=== PATIENT | male | born 1930 | race Caucasian/White ===

== ENCOUNTER → 2016-09-02 | Outpatient (CLI) | payer MEDICARE ==
[2016-09-02 14:59] LABS: BASO # 0.1 x10^3/uL (0.0-0.2); BASO % 1 % (0-3); EOS # 0.4 x10^3/uL (0.0-0.7); EOS % 4 % (0-3); HEMATOCRIT 25.6 % (39.0-53.0); HEMOGLOBIN 8.3 g/dL (13.0-17.5); LYMPH # 3.1 x10^3/uL (1.0-4.8); LYMPH % 29 % (24-48); MEAN CORPUSCULAR HEMOGLOBIN 29 pg (25-35); MEAN CORPUSCULAR HGB CONC 33 g/dL (31-37); MEAN CORPUSCULAR VOLUME 89 fL (79-100); MONO # 0.7 x10^3/uL (0.0-1.1); MONO % 7 % (0-9); NEUT # 6.2 x10^3uL (1.8-7.7); NEUT % 60 % (31-73); PLATELET COUNT 218 x10^3/uL (140-400); RED BLOOD COUNT 2.87 x10^6/uL (4.30-5.70); RED CELL DISTRIBUTION WIDTH 17.4 % (11.5-14.5); WHITE BLOOD COUNT 10.4 x10^3/uL (4.0-11.0)
[2016-09-02 15:09] LABS: ALBUMIN 3.5 g/dL (3.4-5.0); CALCIUM 8.9 mg/dL (8.5-10.1); CREATININE 2.1 mg/dL (0.7-1.3); PHOSPHORUS 4.1 mg/dL (2.6-4.7); POTASSIUM 3.9 mmol/L (3.5-5.1); URIC ACID 7.5 mg/dL (3.5-7.2)
[2016-09-03 15:08] LABS: CALCIUM PTH 9.1 mg/dL (8.6-10.2); PTH INTACT 59 pg/mL (15-65)
== END | disposition home or self-care (01) ==
LOC: LAB 13:58
PROVIDERS: ATTEND Internal Medicine Nephrology
DX: I12.9 Hypertensive chronic kidney disease with stage 1 through stage 4 chronic kidney disease, or unspecified chronic kidney disease (principal); N18.9 Chronic kidney disease, unspecified; R80.9 Proteinuria, unspecified
CPT/HCPCS: 36415; 80069; 82728; 83540; 83550; 83970; 84550; 85027

== ENCOUNTER → 2016-09-02 | Outpatient (CLI) | payer MEDICARE ==
[2016-09-02 15:04] LABS: CALCIUM 8.7 mg/dL (8.5-10.1); CREATININE 2.1 mg/dL (0.7-1.3); POTASSIUM 3.7 mmol/L (3.5-5.1)
== END ==
LOC: LAB 13:48
PROVIDERS: ATTEND Nurse Practitioner Occupational Health
DX: N40.0 Benign prostatic hyperplasia without lower urinary tract symptoms (principal)
CPT/HCPCS: 36415; 80048

== ENCOUNTER → 2016-12-30 | Outpatient (CLI) | payer MEDICARE ==
[2016-12-30 15:22] LABS: BASO # 0.1 x10^3/uL (0.0-0.2); BASO % 1 % (0-3); EOS # 0.4 x10^3/uL (0.0-0.7); EOS % 4 % (0-3); HEMATOCRIT 25.3 % (39.0-53.0); HEMOGLOBIN 8.3 g/dL (13.0-17.5); LYMPH # 3.9 x10^3/uL (1.0-4.8); LYMPH % 37 % (24-48); MEAN CORPUSCULAR HEMOGLOBIN 30 pg (25-35); MEAN CORPUSCULAR HGB CONC 33 g/dL (31-37); MEAN CORPUSCULAR VOLUME 91 fL (79-100); MONO # 0.7 x10^3/uL (0.0-1.1); MONO % 6 % (0-9); NEUT # 5.7 x10^3uL (1.8-7.7); NEUT % 53 % (31-73); PLATELET COUNT 213 x10^3/uL (140-400); RED BLOOD COUNT 2.78 x10^6/uL (4.30-5.70); RED CELL DISTRIBUTION WIDTH 16.3 % (11.5-14.5); WHITE BLOOD COUNT 10.7 x10^3/uL (4.0-11.0)
[2016-12-30 15:47] LABS: ALBUMIN 3.7 g/dL (3.4-5.0); CALCIUM 9.3 mg/dL (8.5-10.1); CREATININE 2.5 mg/dL (0.7-1.3); GFR 24.6; PHOSPHORUS 4.2 mg/dL (2.6-4.7); POTASSIUM 3.9 mmol/L (3.5-5.1)
== END | disposition home or self-care (01) ==
LOC: LAB 14:24
PROVIDERS: ATTEND Internal Medicine Nephrology
DX: I12.9 Hypertensive chronic kidney disease with stage 1 through stage 4 chronic kidney disease, or unspecified chronic kidney disease (principal); N18.9 Chronic kidney disease, unspecified; E11.21 Type 2 diabetes mellitus with diabetic nephropathy; D63.1 Anemia in chronic kidney disease; R80.9 Proteinuria, unspecified; Z68.30 Body mass index [BMI] 30.0-30.9, adult
CPT/HCPCS: 80069; 82728; 83540; 83550; 85025

== ENCOUNTER 2017-01-19 09:23 | Emergency (ER) | payer MEDICARE ==
[~2017-01-19] VITALS: Ht 177.8 cm; Wt 93.0 kg
[2017-01-19] MEDS ORDERED: HYDROcodone/APAP 5/325MG 1 TAB TABLET PO ONE (10:00)
[2017-01-19 10:25] VITALS: BP 136/46
--- NOTE | 2017-01-19 10:28 | RAD ---
Indication wrist pain. Injury yesterday. A lateral and oblique view of the left forearm were obtained as well as an AP view. No acute bony finding is seen. Vascular calcification is noted.
--- NOTE | 2017-01-19 10:35 | RAD ---
Indication injury yesterday. Pain. AP oblique and lateral views of the left wrist were obtained. There is probable bony demineralization. There are some degenerative changes at the first CMC joint. There is vascular calcification. Acute bony finding is not seen. IMPRESSION: No acute bony finding
[2017-01-19] MEDS ORDERED: HYDR-971 PO (10:47)
--- NOTE | 2017-01-19 10:47 | PHYS DOC ---
Past History Past Medical History: CAD, Diabetes, Hypertension, [place] Past Surgical History: Coronary Bypass Surgery, Pacemaker Alcohol Use: None Drug Use: None Adult General Chief Complaint Chief Complaint: WRIST PAIN HPI HPI Patient is a 86 year old M who presents with constant dull left wrist pain worse with movement and improved with rest. Shawn states that he had a fall last night. He fell backwards onto his bottom with his left hand outstretched behind him. He had immediate and constant pain. He states that he has had difficulty using his walker but has been able to get around last night and this morning. He did have recent medication changes with respect to diabetes medication and his blood pressure medications. Review of Systems Review of Systems Constitutional: Denies fever or chills [] Eyes: Denies change in visual acuity, redness, or eye pain [] HENT: Denies nasal congestion or sore throat [] Respiratory: Denies cough or shortness of breath [] Cardiovascular: No additional information not addressed in HPI [] GI: Denies abdominal pain, nausea, vomiting, bloody stools or diarrhea [] : Denies dysuria or hematuria [] Musculoskeletal: Negative except history of present illness Integument: Denies rash or skin lesions [] Neurologic: Denies headache, focal weakness or sensory changes [] Endocrine: Denies polyuria or polydipsia [] Family History Family History Noncontributory Current Medications Current Medications Medications reviewed Current Medications Medications (Trade) Dose Ordered Sig/Joann Start Time Stop Time Status Last Admin Dose Admin Acetaminophen/ Hydrocodone Bitart (Lortab 5/325) 1 tab 1X ONCE 01/19/17 10:00 01/19/17 10:01 DC 01/19/17 10:14 1 TAB Allergies Allergies Allergies Coded Allergies Type Severity Reaction Last Updated Verified Penicillins Allergy Intermediate rash 01/19/17 Yes egg Allergy Unknown 01/19/17 Yes Physical Exam Physical Exam Constitutional: Well developed, well nourished, no acute distress, non-toxic appearance. [] HENT: Normocephalic, atraumatic, Eyes: EOMI, conjunctiva normal, no discharge. [] Neck: Normal range of motion, no tenderness, supple, no stridor. [] Cardiovascular:Heart rate regular rhythm, Lungs & Thorax: Bilateral breath sounds clear to auscultation [] Abdomen: Bowel sounds normal, soft, no tenderness, no masses, no pulsatile masses. [] Extremities: Exam limited to the left arm: Moderate generalized swelling around the wrist with mild ecchymosis. Generalized tenderness to palpation. Normal active and passive range of motion however pain was noted. Strength testing is limited due to pain. Neurovascularly intact. Neurologic: Alert and oriented X 3, Psychologic: Affect normal, judgement normal, mood normal. [] Current Patient Data Vital Signs Vital Signs Date Time Temp Pulse Resp B/P (MAP) Pulse Ox O2 Delivery O2 Flow Rate FiO2 01/19/17 10:25 74 20 136/46 (76) 97 Room Air 01/19/17 09:23 98.2 EKG EKG [] Radiology/Procedures Radiology/Procedures X-ray wrist 3 view and forearm 3 view Impressions: No acute bony disease - Scaletty Course & Med Decision Making Course & Med Decision Making Pertinent Labs and Imaging studies reviewed. (See chart for details) Based on Liane use of a walker for mobility there was concern about his ability to take care of himself at home. He does live with his son. Both Shawn and his son state that he has been able to get around the house since the fall. Both feel that he will continue to be able to get around the house after discharge from the ER. He was strongly advised follow-up with his primary care doctor as soon as possible to assess his mobility and fall risk. This follow-up may also assist in a dressing medication changes made by specialists. Dragon Disclaimer Dragon Disclaimer This chart was dictated in whole or in part using Voice Recognition software in a busy, high-work load, and often noisy Emergency Department environment. It may contain unintended and wholly unrecognized errors or omissions. Departure Departure: Impression: Primary Impression: Contusion of wrist, left Disposition: 01 HOME, SELF-CARE Condition: STABLE Referrals: KALE GUADALUPE (PCP) Patient Instructions: Wrist Splint Additional Instructions: Shawn was seen in the emergency department for wrist injury. No emergency medical condition was found on history or physical exam. He did have normal x- rays of his wrist and forearm. He was placed in a splint, for a possible wrist sprain. He is given a prescription for pain medication and advised to use lidocaine patches. He was advised that this injury as well as pain medication increase his risk for fall. He was also advised that oral pain medication will increase his risk for constipation. He was advised to use stool softeners while using pain medication. He was advised follow-up with his primary care doctor as soon as possible for further management of his mobility and full risk. He was discharged in the care of his son. Scripts Hydrocodone Bit/Acetaminophen (NORCO 5-325 TABLET) 1 Each Tablet 1 TAB PO TID for 3 Days, #9 TAB Prov: SPENCER VAZQUEZ MD 01/19/17 Problem Qualifiers Primary Impression: Contusion of wrist, left Encounter type: initial encounter Qualified Codes: S60.212A - Contusion of left wrist, initial encounter SPENCER VAZQUEZ MD Jan 19, 2017 10:47
[2017-01-19] MEDS ORDERED: LINA5TAB4 PO (16:14)
[2017-01-19] MEDS ORDERED: PIOG30TA41 PO (16:15)
[2017-01-19] MEDS ORDERED: ATOR40TA59 PO (16:16)
[2017-01-19] MEDS ORDERED: AMLO10TA2 PO (16:16)
[2017-01-19] MEDS ORDERED: ASPI-630 PO (16:16)
[2017-01-19] MEDS ORDERED: FISH12002 PO (16:16)
[2017-01-19] MEDS ORDERED: TAMS0.4C97 PO (16:16)
[2017-01-19] MEDS ORDERED: FERR-26 PO (16:17)
[2017-01-19] MEDS ORDERED: FURO80TA3 PO (16:17)
[2017-01-19] MEDS ORDERED: METO50TA2 PO (16:18)
[2017-01-19] MEDS ORDERED: MULT1TAB52 PO (16:18)
[2017-01-19] MEDS ORDERED: PREG75CA PO (16:18)
== END 2017-01-19 10:55 | disposition home or self-care (01) ==
LOC: ER 09:23
DX: S60.212A Contusion of left wrist, initial encounter (principal); I25.810 Atherosclerosis of coronary artery bypass graft(s) without angina pectoris; E11.9 Type 2 diabetes mellitus without complications; I10 Essential (primary) hypertension; I25.2 Old myocardial infarction; Z95.0 Presence of cardiac pacemaker; Z91.012 Allergy to eggs; Z88.0 Allergy status to penicillin; W19.XXXA Unspecified fall, initial encounter; Y93.89 Activity, other specified; Y99.8 Other external cause status; Y92.89 Other specified places as the place of occurrence of the external cause
CPT/HCPCS: 29125; 73090; 73110; 99284

== ENCOUNTER 2017-01-19 14:26 | Inpatient (IN) | payer MEDICARE ==
[~2017-01-19] VITALS: Ht 177.8 cm; Wt 97.2 kg
[~2017-01-19 14:26] MED LIST: HYDR-971 PO
[2017-01-19 16:13] VITALS: BP 147/62
[2017-01-19] MEDS ORDERED: LINA5TAB4 PO (16:14)
[2017-01-19] MEDS ORDERED: PIOG30TA41 PO (16:15)
[2017-01-19] MEDS ORDERED: FISH12002 PO (16:16)
[2017-01-19] MEDS ORDERED: ATOR40TA59 PO (16:16)
[2017-01-19] MEDS ORDERED: ASPI-630 PO (16:16)
[2017-01-19] MEDS ORDERED: TAMS0.4C97 PO (16:16)
[2017-01-19] MEDS ORDERED: AMLO10TA2 PO (16:16)
[2017-01-19] MEDS ORDERED: FERR-26 PO (16:17)
[2017-01-19] MEDS ORDERED: FURO80TA3 PO (16:17)
[2017-01-19] MEDS ORDERED: MULT1TAB52 PO (16:18)
[2017-01-19] MEDS ORDERED: METO50TA2 PO (16:18)
[2017-01-19] MEDS ORDERED: PREG75CA PO (16:18)
[2017-01-19 16:35] LABS: BASO % 0 % (0-3); EOS % 0 % (0-3); HEMATOCRIT 21.9 % (39.0-53.0); HEMOGLOBIN 7.2 g/dL (13.0-17.5); LYMPH # 1.2 x10^3/uL (1.0-4.8); LYMPH % 10 % (24-48); MEAN CORPUSCULAR HEMOGLOBIN 30 pg (25-35); MEAN CORPUSCULAR HGB CONC 33 g/dL (31-37); MEAN CORPUSCULAR VOLUME 91 fL (79-100); MONO # 1.2 x10^3/uL (0.0-1.1); MONO % 10 % (0-9); NEUT # 9.9 x10^3uL (1.8-7.7); NEUT % 80 % (31-73); PLATELET COUNT 190 x10^3/uL (140-400); RED BLOOD COUNT 2.42 x10^6/uL (4.30-5.70); RED CELL DISTRIBUTION WIDTH 15.6 % (11.5-14.5); WHITE BLOOD COUNT 12.3 x10^3/uL (4.0-11.0)
[2017-01-19 16:38] VITALS: BP 147/62
[2017-01-19 16:54] LABS: ALBUMIN 3.2 g/dL (3.4-5.0); ALBUMIN/GLOBULIN RATIO 0.8 (1.0-1.7); CALCIUM 8.7 mg/dL (8.5-10.1); CREATININE 2.9 mg/dL (0.7-1.3); GFR 20.7; TOTAL BILIRUBIN 0.4 mg/dL (0.2-1.0)
[2017-01-19 17:08] LABS: POTASSIUM 2.6 mmol/L (3.5-5.1)
--- NOTE | 2017-01-19 17:18 | EKG ---
[address] [address] Test Date: 2017-01-19 Test Time: 17:06:45 Pat Name: DENNIS BANKS Department: Room: 107 A Gender: M Emergency Room Physician: : [id number] Requested By: HARRISON HEBERT Order Number: [id number] Reading MD: Measurements Intervals [place] Rate: 73 P: 0 [place]: 330 QRS: -9 QRSD: 110 T: -176 QT: 390 QTc: 433 Interpretive Statements SINUS RHYTHM PROLONGED [place] INTERVAL LEFTWARD AXIS ST & T ABNORMALITY, CONSIDER ANTERIOR ISCHEMIA OR LEFT VENTRICULAR STRAIN LATERAL ISCHEMIA OR LEFT VENTRICULAR STRAIN T ABNORMALITY IN INFEROLATERAL LEADS ABNORMAL ECG RI6.01 No previous ECG available for comparison
[2017-01-19] MEDS: POTASSIUM CHLORIDE 10MEQ 50 ML IV SCH ×4 (17:45→21:45)
--- NOTE | 2017-01-19 19:15 | HP ---
ADMIT DATE: 01/19/2017 REASON FOR ADMISSION: Fall, weakness, shortness of breath, hypokalemia. HISTORY OF PRESENT ILLNESS: This is an 86-year-old gentleman who was a direct admit after being seen in the Emergency Room this morning after falling and sustaining on his left wrist. He did not sustain a fracture and this was the only problem that was addressed and he was sent on his way. Daughter is a pharmacist here at [facility] and the family was concerned that he was so weak that he could not even stand up. They were going to bring him for direct admit and EMS had to be called because he was so weak. PAST MEDICAL HISTORY: He does have a history of coronary artery disease, diabetes, hypertension, history of UT. He has type 2 diabetes. He has a bioprosthetic aortic valve. He has qorbg-ys-budprav diastolic dysfunction. He has a history of acute respiratory failure and chronic kidney disease and anemia of chronic kidney disease. Severe BPH. MEDICATIONS: Changes, he had just seen Dr. Rush on 01/12/2017, and his lisinopril was discontinued. Please see the MAR, he is also on Lasix 80 mg once a day. He is also on chronic oxygen at home about 4 liters. SOCIAL HISTORY: Lives at home with his son, he has a supportive family. Never smoked. Alcohol not known. No alcohol. PAST SURGICAL HISTORY: CABG, knee replacement, bioprosthetic aortic valve, pacemaker. HABITS: Never smoked. Alcohol, not known. Lives at home with family. REVIEW OF SYSTEMS: Positive for progressive shortness of breath. Increased weakness, increased edema of lower extremity. Denies fever, sore throat, loss of appetite. Positive weakness. Positive shortness of breath. Denies chest pain. OBJECTIVE: VITAL SIGNS: Blood pressure 147/62, pulse 70, temperature 99.1, pulse ox 92% on 4 liters. Height is 70 inches, weight 212 pounds. GENERAL: An elderly gentleman in mild respiratory distress. He is mildly tachypneic with recurrent rate of 24. HEENT: His hearing, slightly hard of hearing. Eyes are clear. Nose patent. Throat clear. Tongue moist. NECK: Supple. He does have some JVD. LUNGS: With coarse crackles. CARDIOVASCULAR: Irregular rhythm and rate. 2/6 systolic murmur. ABDOMEN: Mildly protuberant and distended. EXTREMITIES: Left leg positive for edema and right leg also less edema, but positive evidence of venous stasis and severe dry skin. 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 LABORATORY DATA: White blood cell count 12.3, hemoglobin 7.2, hematocrit 21.9. Chemistries: Potassium is 2.6, BUN is 37, creatinine is 2.9, his BNP is 9585. Chest x-ray is pending. EKG also is pending. ASSESSMENT: 1. Dkskq-zg-yupfhqm congestive heart failure. 2. Kvlin-oy-icmjcer respiratory failure. 3. Worsening chronic kidney disease. 4. Hypokalemia. 5. Anemia of chronic kidney disease. 6. Recent fall with left wrist pain without fracture. 7. Severe benign prostatic hypertrophy with history of urinary retention, is incontinent currently. 8. Type 2 diabetes. 9. Paroxysmal atrial fibrillation. 10. Moderately severe tricuspid regurgitation. 11. Bioprosthetic aortic valve. PLAN: Blood transfusion, gentle diuresis, replace his potassium. Discuss case with Dr. Rush tomorrow. HARRISON HEBERT DO DR: HARSH/larry JOB#: [id number] / [id number]
[2017-01-19 19:20] VITALS: BP 149/61
[2017-01-19] MEDS ORDERED: IPRATRPIUM/ALBUTEROL 0.5/2.5MG 3 ML NEBU. ONE (21:00)
[2017-01-19] MEDS: IPRATRPIUM/ALBUTEROL 0.5/2.5MG 3 ML NEBU. NEB SCH (21:15)
[2017-01-19] MEDS: ATORVASTATIN CALCIUM 20 MG TABLET PO SCH (21:42)
[2017-01-19] MEDS: PREGABALIN 75 MG CAPSULE PO SCH (21:42)
[2017-01-19] MEDS ORDERED: FUROSEMIDE 20 MG/2 ML VIAL IVP ONE (22:30)
[2017-01-19 23:18] VITALS: BP 131/62
[2017-01-20] VITALS (13 sets, daily range): BP systolic 130–161; BP diastolic 52–83
--- NOTE | 2017-01-20 02:08 | PDOC ---
PROVIDER NOTE PROVIDER NOTE PROVIDER NOTE Late Entry for 01/19/2017 Reason for consultation: KATIA HPI 86 y.o male known to our service, was seen last year at [place] when he had a normal echo and MPI. He has been declining over the last several months and apparently has been quite anemia. his hgb upon arrival was 7.2. He is due for blood transfusion. At baseline has NYHA class 3 symptoms, presumably due to diastolic HF and lung disease. Recently also been on oxygen. Denies any present chest pain. He fell and was seen in the ER for his left wrist, etiology of fall appears to be mechanical in nature. He was too weak to then go home and so he was admitted due to his dyspnea and weakness. Follows with Dr. Nixon at [facility]. PMhx 1. Bioprosthetic AVR 2. HTn 3. CAD 4. DLP. No alc, illicits or smoking Allergies -reviewed Meds - reviewed. ROS - negative for 01/17 unless otherwise noted above in HPI. Physical exam: Cardiovascular: Normal heart sounds Respiratory: decreased breath sounds Abdomen: Soft, nontender, normal bowel sounds Mental Status: Alert, oriented X 3 Other: Ext with sign scaling 1+ pitting edema. Labs reviewed. Known CKD Known anemia. Impression: 1. Failure to thrive 2. Diasotlic HF - acute on chronic - mild 3. CKD with anemia. Plan: 1. Await [facility] records 2. Agree with transfusion and diuresis. 3. Etiology of significant debility is likely not cardiac given that he had a normal echo and MPI in late 2015. Will follow. NANCY SMALL MD Jan 20, 2017 02:08
[2017-01-20] MEDS ORDERED: FUROSEMIDE 40 MG/4 ML VIAL IVP ONE (03:00)
[2017-01-20 04:17] LABS: AMORPHOUS SEDIMENT,UR PRESENT /HPF; BACTERIA,URINE FEW /HPF (0-FEW); BILIRUBIN,URINE NEG (NEG); CLARITY,URINE CLEAR; COLOR,URINE YELLOW; GLUCOSE,URINE NEG (NEG); NITRITE,URINE NEG (NEG); RBC,URINE 0 /HPF (0-2); UROBILINOGEN,URINE 0.2 mg/dL (0.2 mg/dL); WBC,URINE OCC /HPF (0-4)
[2017-01-20 06:25] LABS: BASO % 0 % (0-3); EOS # 0.1 x10^3/uL (0.0-0.7); EOS % 1 % (0-3); HEMATOCRIT 24.6 % (39.0-53.0); LYMPH # 1.7 x10^3/uL (1.0-4.8); LYMPH % 17 % (24-48); MEAN CORPUSCULAR HEMOGLOBIN 31 pg (25-35); MEAN CORPUSCULAR HGB CONC 34 g/dL (31-37); MEAN CORPUSCULAR VOLUME 90 fL (79-100); MONO # 1.1 x10^3/uL (0.0-1.1); MONO % 11 % (0-9); NEUT % 71 % (31-73); PLATELET COUNT 161 x10^3/uL (140-400); RED BLOOD COUNT 2.73 x10^6/uL (4.30-5.70); RED CELL DISTRIBUTION WIDTH 15.1 % (11.5-14.5)
[2017-01-20 06:34] LABS: HEMOGLOBIN 8.4 g/dL (13.0-17.5)
[2017-01-20 06:47] LABS: ALBUMIN/GLOBULIN RATIO 0.8 (1.0-1.7); CALCIUM 8.4 mg/dL (8.5-10.1); CREATININE 2.9 mg/dL (0.7-1.3); GFR 20.7; TOTAL BILIRUBIN 0.7 mg/dL (0.2-1.0); TOTAL PROTEIN 6.7 g/dL (6.4-8.2)
[2017-01-20 06:50] LABS: POTASSIUM 2.6 mmol/L (3.5-5.1)
[2017-01-20] MEDS ORDERED: POTASSIUM CHLORIDE 20 MEQ TABLET.ER. PO ONE (07:15)
[2017-01-20] MEDS: ACETAMINOPHEN 325 MG TABLET PO PRN ×2 (08:25→14:27)
[2017-01-20] MEDS: FERROUS SULFATE 325 MG TABLET. PO SCH (08:25)
[2017-01-20] MEDS: TAMSULOSIN 0.4 MG CAP.ER.24H. PO SCH (08:25)
[2017-01-20] MEDS: PIOGLITAZONE 15 MG TABLET. PO SCH (08:25)
[2017-01-20] MEDS: MULTIVITAMIN with MINERAL TABLET. PO SCH (08:25)
[2017-01-20] MEDS: POTASSIUM CHLORIDE 20 MEQ TABLET.ER. PO SCH ×3 (08:25→17:47)
[2017-01-20] MEDS: OMEGA-3 FATTY ACIDS/FISH OIL 1,000 MG CAPSULE. PO SCH (08:25)
[2017-01-20] MEDS: LINAGLIPTIN 5 MG TABLET PO SCH (08:25)
[2017-01-20] MEDS: ASPIRIN 81 MG TAB.CHEW PO SCH (08:25)
--- NOTE | 2017-01-20 08:32 | RAD ---
Indication shortness of breath. A single view of the chest was obtained and is compared to an examination 07/15/2012. Postoperative changes are noted. There is mild cardiomegaly. There are background changes compatible with mild to moderate congestive heart failure. There are probable small pleural effusions. Cardiac pacing device is noted. IMPRESSION: Mild congestive heart failure with small pleural effusions.
--- NOTE | 2017-01-20 09:32 | PDOC ---
PROGRESS NOTES Assessment Acute on chronic diastolic heart failure chronic atrial fibrillation s/p bioprosthetic AVR CAD s/p 1v bypass CKD stage IV Anemia, recurrent, ?of chronic disease. hypokalemia Replacement of potassium, PRBCs, diurese with attention to Cr. Resume norvasc for afterload reduction. ACEI if ok with nephrology. await nephrology recommendations Accurate I /Os. Would be hesitant to continue anticoagulation despite high cha2ds 2 vasc score secondary to recurrent anemia requiring transfusion, history of GIB and recurrent falls. Problems: Subjective "cold", still short of breath but better, swelling better Objective Vital Signs Date Time Temp Pulse Resp B/P (MAP) Pulse Ox O2 Delivery O2 Flow Rate FiO2 01/20/17 08:50 Nasal Cannula 4.0 01/20/17 06:33 98.0 67 19 153/70 (97) 95 Intake and Output 01/21/17 07:00 Intake Total 480 ml Output Total 300 ml Balance 180 ml Intake Oral 480 ml Output Urine Total 300 ml Abdomen: Normal bowel sounds, Soft Heart: Other (IRR, no gallops) Extremities: Normal pulses, Other (edema improving) Lungs: Other (bibasilar crackles) Neuro: Normal speech Psych/Mental Status: Mental status NL, Mood NL Review of Relevant I have reviewed the following items joann (where applicable) has been applied. Labs Laboratory Tests Test 01/19/17 16:25 01/19/17 20:32 01/19/17 22:45 01/20/17 03:09 White Blood Count 12.3 x10^3/uL (4.0-11.0) Red Blood Count 2.42 x10^6/uL (4.30-5.70) Hemoglobin 7.2 g/dL (13.0-17.5) Hematocrit 21.9 % (39.0-53.0) Mean Corpuscular Volume 91 fL (79-100) Mean Corpuscular Hemoglobin 30 pg (25-35) Mean Corpuscular Hemoglobin Concent 33 g/dL (31-37) Red Cell Distribution Width 15.6 % (11.5-14.5) Platelet Count 190 x10^3/uL (140-400) Neutrophils (%) (Auto) 80 % (31-73) Lymphocytes (%) (Auto) 10 % (24-48) Monocytes (%) (Auto) 10 % (0-9) Eosinophils (%) (Auto) 0 % (0-3) Basophils (%) (Auto) 0 % (0-3) Neutrophils # (Auto) 9.9 x10^3uL (1.8-7.7) Lymphocytes # (Auto) 1.2 x10^3/uL (1.0-4.8) Monocytes # (Auto) 1.2 x10^3/uL (0.0-1.1) Eosinophils # (Auto) 0.0 x10^3/uL (0.0-0.7) Basophils # (Auto) 0.0 x10^3/uL (0.0-0.2) Sodium Level 141 mmol/L (136-145) Potassium Level 2.6 mmol/L (3.5-5.1) 3.0 mmol/L (3.5-5.1) Chloride Level 101 mmol/L (98-107) Carbon Dioxide Level 37 mmol/L (21-32) Anion Gap 3 (6-14) Blood Urea Nitrogen 37 mg/dL (8-26) Creatinine 2.9 mg/dL (0.7-1.3) Estimated GFR (Cockcroft-Gault) 20.7 BUN/Creatinine Ratio 13 (6-20) Glucose Level 145 mg/dL (70-99) Calcium Level 8.7 mg/dL (8.5-10.1) Magnesium Level 2.0 mg/dL (1.8-2.4) Total Bilirubin 0.4 mg/dL (0.2-1.0) Aspartate Amino Transf (AST/SGOT) 15 U/L (15-37) Alanine Aminotransferase (ALT/SGPT) 17 U/L (16-63) Alkaline Phosphatase 52 U/L (46-116) QN-Jrx-S-Type Natriuretic Peptide 9585 pg/mL (0-449) Total Protein 7.0 g/dL (6.4-8.2) Albumin 3.2 g/dL (3.4-5.0) Albumin/Globulin Ratio 0.8 (1.0-1.7) Glucose (Fingerstick) 192 mg/dL (70-99) Urine Collection Type Unknown Urine Color Yellow Urine Clarity Clear Urine pH 5.0 Urine Specific [place] 1.010 Urine Protein 30 mg/dl (NEG-TRACE) Urine Glucose (UA) Neg mg/dL (NEG) Urine Ketones (Stick) Neg mg/dL (NEG) Urine Blood Trace (NEG) Urine Nitrite Neg (NEG) Urine Bilirubin Neg (NEG) Urine Urobilinogen Dipstick 0.2 mg/dL (0.2 mg/dL) Urine Leukocyte Esterase Neg (NEG) Urine RBC 0 /HPF (0-2) Urine WBC Occ /HPF (0-4) Urine Squamous Epithelial Cells None /LPF Urine Amorphous Sediment Present /HPF Urine Bacteria Few /HPF (0-FEW) Test 01/20/17 06:10 01/20/17 07:20 White Blood Count 10.0 x10^3/uL (4.0-11.0) Red Blood Count 2.73 x10^6/uL (4.30-5.70) Hemoglobin 8.4 g/dL (13.0-17.5) Hematocrit 24.6 % (39.0-53.0) Mean Corpuscular Volume 90 fL (79-100) Mean Corpuscular Hemoglobin 31 pg (25-35) Mean Corpuscular Hemoglobin Concent 34 g/dL (31-37) Red Cell Distribution Width 15.1 % (11.5-14.5) Platelet Count 161 x10^3/uL (140-400) Neutrophils (%) (Auto) 71 % (31-73) Lymphocytes (%) (Auto) 17 % (24-48) Monocytes (%) (Auto) 11 % (0-9) Eosinophils (%) (Auto) 1 % (0-3) Basophils (%) (Auto) 0 % (0-3) Neutrophils # (Auto) 7.0 x10^3uL (1.8-7.7) Lymphocytes # (Auto) 1.7 x10^3/uL (1.0-4.8) Monocytes # (Auto) 1.1 x10^3/uL (0.0-1.1) Eosinophils # (Auto) 0.1 x10^3/uL (0.0-0.7) Basophils # (Auto) 0.0 x10^3/uL (0.0-0.2) Sodium Level 140 mmol/L (136-145) Potassium Level 2.6 mmol/L (3.5-5.1) Chloride Level 101 mmol/L (98-107) Carbon Dioxide Level 34 mmol/L (21-32) Anion Gap 5 (6-14) Blood Urea Nitrogen 38 mg/dL (8-26) Creatinine 2.9 mg/dL (0.7-1.3) Estimated GFR (Cockcroft-Gault) 20.7 BUN/Creatinine Ratio 13 (6-20) Glucose Level 111 mg/dL (70-99) Calcium Level 8.4 mg/dL (8.5-10.1) Magnesium Level 2.0 mg/dL (1.8-2.4) Total Bilirubin 0.7 mg/dL (0.2-1.0) Aspartate Amino Transf (AST/SGOT) 14 U/L (15-37) Alanine Aminotransferase (ALT/SGPT) 15 U/L (16-63) Alkaline Phosphatase 47 U/L (46-116) Total Protein 6.7 g/dL (6.4-8.2) Albumin 3.0 g/dL (3.4-5.0) Albumin/Globulin Ratio 0.8 (1.0-1.7) Glucose (Fingerstick) 102 mg/dL (70-99) Medications Current Medications Potassium Chloride 50 ml @ 100 mls/hr Q1H IV Last administered on 01/19/17 21:45; Start 01/19/17 at 17:45; Stop 01/19/17 at 21:14; Status DC Aspirin (Children'S Aspirin) 81 mg DAILY PO Last administered on 01/20/17 08: 25; Start 01/20/17 at 09:00 Ferrous Sulfate (Feosol) 325 mg DAILYWBKFT PO Last administered on 01/20/17 08:25; Start 01/20/17 at 09:00 Linagliptin (Tradjenta) 5 mg DAILY PO Last administered on 01/20/17 08:25; Start 01/20/17 at 09:00 Pregabalin (Lyrica) 75 mg QHS PO Last administered on 01/19/17 21:42; Start 01/19/17 at 21:00 Tamsulosin HCl (Flomax) 0.4 mg DAILY PO Last administered on 01/20/17 08:25; Start 01/20/17 at 09:00 Atorvastatin Calcium (Lipitor) 40 mg QHS PO Last administered on 01/19/17 21: 42; Start 01/19/17 at 21:00 Fish Oil (Fish Oil) 1,000 mg DAILY PO Last administered on 01/20/17 08:25; Start 01/20/17 at 09:00 Multivitamins/ Calcium (Thera-M Plus) 1 tab DAILY PO Last administered on 01/20 08:25; Start 01/20/17 at 09:00 Pioglitazone HCl (Actos) 30 mg DAILY PO Last administered on 01/20/17 08:25; Start 01/20/17 at 09:00 Acetaminophen (Tylenol) 650 mg PRN Q6HRS PRN PO PAIN / TEMP Last administered on 01/20/17 08:25; Start 01/19/17 at 21:00 Albuterol/ Ipratropium (Duoneb) 3 ml RTBID NEB ; Start 01/19/17 at 21:15 Albuterol/ Ipratropium (Duoneb) 3 ml STK-MED ONCE .ROUTE ; Start 01/19/17 at 21 :00; Stop 01/19/17 at 21:01; Status DC Ceftriaxone Sodium 1 gm/ Sodium Chloride 50 ml @ 100 mls/hr Q24H IV ; Start at 21:30; Stop 01/19/17 at 21:43; Status DC Ceftriaxone Sodium 1 gm/ Dextrose 50 ml @ 100 mls/hr Q24H IV ; Start 01/19/17 at 21:43; Stop 01/19/17 at 21:44; Status DC Ceftriaxone Sodium 1 gm/ Dextrose 50 ml @ 100 mls/hr Q24H IV Last administered on 01/20/17 05:46; Start 01/19/17 at 22:00 Furosemide (Lasix) 20 mg 1X ONCE IVP Last administered on 01/19/17 23:19; Start 01/19/17 at 22:30; Stop 01/19/17 at 22:31; Status DC Furosemide (Lasix) 40 mg 1X ONCE IVP Last administered on 01/20/17 02:43; Start 01/20/17 at 03:00; Stop 01/20/17 at 03:01; Status DC Potassium Chloride (Klor-Con) 40 meq 1X ONCE PO Last administered on 07:28; Start 01/20/17 at 07:15; Stop 01/20/17 at 07:16; Status DC Potassium Chloride (Klor-Con) 40 meq TIDAC PO Last administered on 01/20/17t 08:25; Start 01/20/17 at 08:00 Active Scripts Active Reported Lyrica (Pregabalin) 75 Mg Capsule 75 Mg PO QHS Multivitamins (Multivitamin) 1 Each Tablet 1 Tab PO DAILY Metoprolol Tartrate 50 Mg Tablet 50 Mg PO BID Ferrous Sulfate 325 Mg Tablet 1 Tab PO DAILY Furosemide 80 Mg Tablet 80 Mg PO DAILY Flomax (Tamsulosin Hcl) 0.4 Mg Cap.er.24h 1 Cap PO DAILY [place] 3-6-9 1,200 mg Softgel (Fish Oil/Borage/Flax/Om3,6,9#1) 1,200 Mg Capsule 1 ,000 Mg PO DAILY Atorvastatin Calcium 40 Mg Tablet 40 Mg PO QHS Aspirin 81 Mg Tab.chew 81 Mg PO DAILY Amlodipine Besylate 10 Mg Tablet 10 Mg PO DAILY Actos (Pioglitazone Hcl) 30 Mg Tablet 30 Mg PO DAILY Tradjenta (Linagliptin) 5 Mg Tablet 1 Tab PO DAILY Vitals/I & O Vital Sign - Last 24 Hours 01/19/17 01/19/17 01/19/17 01/19/17 16:13 16:38 19:20 19:50 Temp 99.1 99.1 98.7 Pulse 70 70 65 Resp 18 16 B/P (MAP) 147/62 (90) 147/62 (90) 149/61 (90) Pulse Ox 92 92 96 O2 Delivery Nasal Cannula Nasal Cannula Nasal Cannula O2 Flow Rate 4.0 4.0 4.0 01/19/17 01/19/17 01/20/17 01/20/17 21:45 23:18 00:12 00:14 Temp 98.4 97.7 97.7 Pulse 66 68 68 Resp 20 18 18 B/P (MAP) 131/62 (85) 150/66 150/66 (94) Pulse Ox 100 98 96 O2 Delivery Nasal Cannula O2 Flow Rate 4.0 4.0 4.0 01/20/17 01/20/17 01/20/17 01/20/17 01:15 02:55 03:30 04:30 Temp 98.3 98.1 98.4 98.0 Pulse 68 64 63 66 Resp 18 18 18 18 B/P (MAP) 137/52 130/56 (80) 144/62 161/70 Pulse Ox 95 O2 Flow Rate 3.0 01/20/17 01/20/17 01/20/17 01/20/17 05:30 05:31 06:33 08:50 Temp 97.6 97.6 98.0 Pulse 64 64 67 Resp 19 19 19 B/P (MAP) 147/83 147/83 (104) 153/70 (97) Pulse Ox 95 95 O2 Delivery Nasal Cannula O2 Flow Rate 4.0 2.0 4.0 Intake and Output 01/20/17 01/20/17 01/21/17 15:00 23:00 07:00 Intake Total 480 ml Output Total 300 ml Balance 180 ml GALE MENDOZA APRN Jan 20, 2017 09:32
[2017-01-20] MEDS: IPRATRPIUM/ALBUTEROL 0.5/2.5MG 3 ML NEBU. NEB SCH ×2 (10:14→20:43)
[2017-01-20] MEDS ORDERED: IRON SUCROSE COMPLEX 500 MG in IV NORMAL SALINE 250ML 250 ML IV ONE (12:00)
[2017-01-20] MEDS: amLODIPine BESYLATE 10 MG TABLET PO SCH (14:27)
[2017-01-20] MEDS: ATORVASTATIN CALCIUM 20 MG TABLET PO SCH (20:46)
[2017-01-20] MEDS: PREGABALIN 75 MG CAPSULE PO SCH (20:47)
--- NOTE | 2017-01-21 03:55 | PN ---
DATE: CURRENT PROBLEMS: 1. Ieidm-lj-xsnfnqc diastolic heart failure. 2. Chronic atrial fibrillation. 3. Severe hypokalemia. 4. Severe anemia of chronic kidney disease. 5. 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 6. Chronic kidney disease, late stage 3. 7. Bioprosthetic aortic valve. 8. Status post fall with a left wrist sprain. SUBJECTIVE: The patient has been seen by Cardiology and is assisting with diuresis. He is doing better today. He received 2 units of packed cells yesterday and Lasix in between and did tolerated it quite well. His color is improved today as well. OBJECTIVE: VITAL SIGNS: Blood pressure 157/68, pulse 87, respirations 20, temperature is 98.7, pulse ox 98% on 3 liters, height is 70 inches, weight is 214.25 pounds, the I and O is not accurate. GENERAL: His color is improved. He is alert. He is sitting up in the chair. HEENT: His tongue was moist. NECK: Supple. LUNGS: With a few coarse breath sounds, but improved, not tachypneic. CARDIOVASCULAR: Irregular rhythm and rate. ABDOMEN: Soft, less tight. EXTREMITIES: With decreased edema. LABORATORY DATA: Potassium is 2.6, BUN is 38, creatinine is 2.9, essentially unchanged. His magnesium is 2, albumin is 3, and his hemoglobin has improved to 8.4/24.6 after 2 units of packed cells. PLAN: Discussed with Dr. Rush, his wire basket maker and addressed concerns, my concerns also Cardiology's concerns. Dr. Rush does not recommend restarting an ARB or an GERARDO. At this age, there would not be any usp benefits according to Dr. Rush. If he needed some type of blood pressure control, he would recommend more nitrates or hydralazine or afterload reduction. He does recommend we go ahead and administer Venofer for his severe iron deficiency anemia. He also feels that that will improve cardiac symptoms that he might have. He is not technically end-stage renal disease as of yet. Dr. Rush recommends diuresis to a comfortable level, but not to "dry him out as he may be thrown into end-stage renal disease and require dialysis." We will discuss that with Cardiology and will resume the amlodipine that he was supposed to be taking at home, but has not been taking. HARRISON HEBERT DO DR: Tory JOB#: [id number] / [id number]
[2017-01-21 05:11] VITALS: BP 119/55
[2017-01-21] MEDS: POTASSIUM CHLORIDE 20 MEQ TABLET.ER. PO SCH ×3 (08:43→17:31)
[2017-01-21] MEDS: amLODIPine BESYLATE 10 MG TABLET PO SCH (08:44)
[2017-01-21] MEDS: ASPIRIN 81 MG TAB.CHEW PO SCH (08:44)
[2017-01-21] MEDS: LINAGLIPTIN 5 MG TABLET PO SCH (08:44)
[2017-01-21] MEDS: FERROUS SULFATE 325 MG TABLET. PO SCH (08:44)
[2017-01-21] MEDS: OMEGA-3 FATTY ACIDS/FISH OIL 1,000 MG CAPSULE. PO SCH (08:44)
[2017-01-21] MEDS: MULTIVITAMIN with MINERAL TABLET. PO SCH (08:44)
[2017-01-21] MEDS: PIOGLITAZONE 15 MG TABLET. PO SCH (08:45)
[2017-01-21] MEDS: TAMSULOSIN 0.4 MG CAP.ER.24H. PO SCH (08:45)
[2017-01-21 09:18] LABS: BASO # 0.1 x10^3/uL (0.0-0.2); BASO % 1 % (0-3); EOS # 0.1 x10^3/uL (0.0-0.7); EOS % 0 % (0-3); HEMATOCRIT 25.4 % (39.0-53.0); HEMOGLOBIN 8.4 g/dL (13.0-17.5); LYMPH # 1.5 x10^3/uL (1.0-4.8); LYMPH % 11 % (24-48); MEAN CORPUSCULAR HEMOGLOBIN 30 pg (25-35); MEAN CORPUSCULAR HGB CONC 33 g/dL (31-37); MEAN CORPUSCULAR VOLUME 92 fL (79-100); MONO # 0.7 x10^3/uL (0.0-1.1); MONO % 5 % (0-9); NEUT # 11.2 x10^3uL (1.8-7.7); NEUT % 83 % (31-73); PLATELET COUNT 171 x10^3/uL (140-400); RED BLOOD COUNT 2.78 x10^6/uL (4.30-5.70); RED CELL DISTRIBUTION WIDTH 15.3 % (11.5-14.5); WHITE BLOOD COUNT 13.5 x10^3/uL (4.0-11.0)
[2017-01-21 09:34] LABS: ALBUMIN 2.8 g/dL (3.4-5.0); ALBUMIN/GLOBULIN RATIO 0.7 (1.0-1.7); CALCIUM 8.5 mg/dL (8.5-10.1); CREATININE 2.9 mg/dL (0.7-1.3); GFR 20.7; MAGNESIUM 1.9 mg/dL (1.8-2.4); POTASSIUM 3.7 mmol/L (3.5-5.1); TOTAL BILIRUBIN 0.4 mg/dL (0.2-1.0); TOTAL PROTEIN 6.7 g/dL (6.4-8.2)
[2017-01-21] MEDS: IPRATRPIUM/ALBUTEROL 0.5/2.5MG 3 ML NEBU. NEB SCH (10:22)
[2017-01-21] MEDS: ACETAMINOPHEN 325 MG TABLET PO PRN (10:50)
--- NOTE | 2017-01-21 10:57 | RAD ---
EXAM: Chest one view. HISTORY: Congestive heart failure. COMPARISON: 01/19/2017. FINDINGS: A frontal view of the chest is obtained. A left-sided pacemaker has its leads in the right atrium and right ventricle. There are changes of coronary artery bypass grafting. Opacities in the lung bases indicate accommodation of atelectasis and mild to moderate pulmonary edema. Small bilateral pleural effusions are likely present. There is no pneumothorax. There are atherosclerotic calcifications of the aorta. The heart is mildly enlarged. There is gaseous distention of the stomach. IMPRESSION: 1. Mild to moderate pulmonary edema. Small bilateral pleural effusions. 2. Mild cardiomegaly.
[2017-01-21 10:59] VITALS: BP 117/59
--- NOTE | 2017-01-21 11:22 | PDOC ---
GALE MENDOZA [employer] 01/21/17 1122: PROGRESS NOTES Assessment acute on chronic diastolic heart failure - CXR a little worse today. Continue to require oxygen at 4 liters. PHTN - PAS 50s by most recent echocardiogram Chronic atrial fibrillation - had been rate controlled. CAD 1V s/p Bypass AVR, bioprostetic - mildly elevated gradient by last echo ~22, thought to be related to anemia at the time PPM - need device check. 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 Anemia - ?chronic disease. Prior hx of GIB thought to be small bowel. Receiving Venofer. BPH, severe by hx Suggest transfer to [facility] for RHC, nephrology consult and continued diuresis. Problems: Subjective continues to be short of breath, continues on 4 liters oxygen, no chest pain Objective Vital Signs Date Time Temp Pulse Resp B/P (MAP) Pulse Ox O2 Delivery O2 Flow Rate FiO2 01/21/17 10:59 99.8 93 24 117/59 (78) 87 Nasal Cannula 3.0 Intake and Output 01/22/17 07:00 Intake Total 240 ml Output Total 250 ml Balance -10 ml Intake Oral 240 ml Output Urine Total 250 ml Abdomen: Normal bowel sounds, Soft Heart: Other (IRR, no gallops) Extremities: Other (+2 edema) General: Alert, Cooperative, mild distress Lungs: Other (bilateral crackles) Neuro: Normal speech Psych/Mental Status: Mental status NL, Mood NL Review of Relevant I have reviewed the following items joann (where applicable) has been applied. Labs Laboratory Tests Test 01/19/17 16:25 01/19/17 20:32 01/19/17 22:45 01/20/17 03:09 White Blood Count 12.3 x10^3/uL (4.0-11.0) Red Blood Count 2.42 x10^6/uL (4.30-5.70) Hemoglobin 7.2 g/dL (13.0-17.5) Hematocrit 21.9 % (39.0-53.0) Mean Corpuscular Volume 91 fL (79-100) Mean Corpuscular Hemoglobin 30 pg (25-35) Mean Corpuscular Hemoglobin Concent 33 g/dL (31-37) Red Cell Distribution Width 15.6 % (11.5-14.5) Platelet Count 190 x10^3/uL (140-400) Neutrophils (%) (Auto) 80 % (31-73) Lymphocytes (%) (Auto) 10 % (24-48) Monocytes (%) (Auto) 10 % (0-9) Eosinophils (%) (Auto) 0 % (0-3) Basophils (%) (Auto) 0 % (0-3) Neutrophils # (Auto) 9.9 x10^3uL (1.8-7.7) Lymphocytes # (Auto) 1.2 x10^3/uL (1.0-4.8) Monocytes # (Auto) 1.2 x10^3/uL (0.0-1.1) Eosinophils # (Auto) 0.0 x10^3/uL (0.0-0.7) Basophils # (Auto) 0.0 x10^3/uL (0.0-0.2) Sodium Level 141 mmol/L (136-145) Potassium Level 2.6 mmol/L (3.5-5.1) 3.0 mmol/L (3.5-5.1) Chloride Level 101 mmol/L (98-107) Carbon Dioxide Level 37 mmol/L (21-32) Anion Gap 3 (6-14) Blood Urea Nitrogen 37 mg/dL (8-26) Creatinine 2.9 mg/dL (0.7-1.3) Estimated GFR (Cockcroft-Gault) 20.7 BUN/Creatinine Ratio 13 (6-20) Glucose Level 145 mg/dL (70-99) Calcium Level 8.7 mg/dL (8.5-10.1) Magnesium Level 2.0 mg/dL (1.8-2.4) Total Bilirubin 0.4 mg/dL (0.2-1.0) Aspartate Amino Transf (AST/SGOT) 15 U/L (15-37) Alanine Aminotransferase (ALT/SGPT) 17 U/L (16-63) Alkaline Phosphatase 52 U/L (46-116) NU-Plt-R-Type Natriuretic Peptide 9585 pg/mL (0-449) Total Protein 7.0 g/dL (6.4-8.2) Albumin 3.2 g/dL (3.4-5.0) Albumin/Globulin Ratio 0.8 (1.0-1.7) Vitamin B12 Level 152 pg/mL (247-911) Glucose (Fingerstick) 192 mg/dL (70-99) Urine Collection Type Unknown Urine Color Yellow Urine Clarity Clear Urine pH 5.0 Urine Specific [place] 1.010 Urine Protein 30 mg/dl (NEG-TRACE) Urine Glucose (UA) Neg mg/dL (NEG) Urine Ketones (Stick) Neg mg/dL (NEG) Urine Blood Trace (NEG) Urine Nitrite Neg (NEG) Urine Bilirubin Neg (NEG) Urine Urobilinogen Dipstick 0.2 mg/dL (0.2 mg/dL) Urine Leukocyte Esterase Neg (NEG) Urine RBC 0 /HPF (0-2) Urine WBC Occ /HPF (0-4) Urine Squamous Epithelial Cells None /LPF Urine Amorphous Sediment Present /HPF Urine Bacteria Few /HPF (0-FEW) Test 01/20/17 06:10 01/20/17 07:20 01/20/17 11:36 01/20/17 16:28 White Blood Count 10.0 x10^3/uL (4.0-11.0) Red Blood Count 2.73 x10^6/uL (4.30-5.70) Hemoglobin 8.4 g/dL (13.0-17.5) Hematocrit 24.6 % (39.0-53.0) Mean Corpuscular Volume 90 fL (79-100) Mean Corpuscular Hemoglobin 31 pg (25-35) Mean Corpuscular Hemoglobin Concent 34 g/dL (31-37) Red Cell Distribution Width 15.1 % (11.5-14.5) Platelet Count 161 x10^3/uL (140-400) Neutrophils (%) (Auto) 71 % (31-73) Lymphocytes (%) (Auto) 17 % (24-48) Monocytes (%) (Auto) 11 % (0-9) Eosinophils (%) (Auto) 1 % (0-3) Basophils (%) (Auto) 0 % (0-3) Neutrophils # (Auto) 7.0 x10^3uL (1.8-7.7) Lymphocytes # (Auto) 1.7 x10^3/uL (1.0-4.8) Monocytes # (Auto) 1.1 x10^3/uL (0.0-1.1) Eosinophils # (Auto) 0.1 x10^3/uL (0.0-0.7) Basophils # (Auto) 0.0 x10^3/uL (0.0-0.2) Sodium Level 140 mmol/L (136-145) Potassium Level 2.6 mmol/L (3.5-5.1) Chloride Level 101 mmol/L (98-107) Carbon Dioxide Level 34 mmol/L (21-32) Anion Gap 5 (6-14) Blood Urea Nitrogen 38 mg/dL (8-26) Creatinine 2.9 mg/dL (0.7-1.3) Estimated GFR (Cockcroft-Gault) 20.7 BUN/Creatinine Ratio 13 (6-20) Glucose Level 111 mg/dL (70-99) Calcium Level 8.4 mg/dL (8.5-10.1) Magnesium Level 2.0 mg/dL (1.8-2.4) Total Bilirubin 0.7 mg/dL (0.2-1.0) Aspartate Amino Transf (AST/SGOT) 14 U/L (15-37) Alanine Aminotransferase (ALT/SGPT) 15 U/L (16-63) Alkaline Phosphatase 47 U/L (46-116) Total Protein 6.7 g/dL (6.4-8.2) Albumin 3.0 g/dL (3.4-5.0) Albumin/Globulin Ratio 0.8 (1.0-1.7) Glucose (Fingerstick) 102 mg/dL (70-99) 169 mg/dL (70-99) 132 mg/dL (70-99) Test 01/20/17 20:48 01/21/17 07:08 01/21/17 08:54 Glucose (Fingerstick) 169 mg/dL (70-99) 107 mg/dL (70-99) White Blood Count 13.5 x10^3/uL (4.0-11.0) Red Blood Count 2.78 x10^6/uL (4.30-5.70) Hemoglobin 8.4 g/dL (13.0-17.5) Hematocrit 25.4 % (39.0-53.0) Mean Corpuscular Volume 92 fL (79-100) Mean Corpuscular Hemoglobin 30 pg (25-35) Mean Corpuscular Hemoglobin Concent 33 g/dL (31-37) Red Cell Distribution Width 15.3 % (11.5-14.5) Platelet Count 171 x10^3/uL (140-400) Neutrophils (%) (Auto) 83 % (31-73) Lymphocytes (%) (Auto) 11 % (24-48) Monocytes (%) (Auto) 5 % (0-9) Eosinophils (%) (Auto) 0 % (0-3) Basophils (%) (Auto) 1 % (0-3) Neutrophils # (Auto) 11.2 x10^3uL (1.8-7.7) Lymphocytes # (Auto) 1.5 x10^3/uL (1.0-4.8) Monocytes # (Auto) 0.7 x10^3/uL (0.0-1.1) Eosinophils # (Auto) 0.1 x10^3/uL (0.0-0.7) Basophils # (Auto) 0.1 x10^3/uL (0.0-0.2) Sodium Level 142 mmol/L (136-145) Potassium Level 3.7 mmol/L (3.5-5.1) Chloride Level 102 mmol/L (98-107) Carbon Dioxide Level 33 mmol/L (21-32) Anion Gap 7 (6-14) Blood Urea Nitrogen 43 mg/dL (8-26) Creatinine 2.9 mg/dL (0.7-1.3) Estimated GFR (Cockcroft-Gault) 20.7 BUN/Creatinine Ratio 15 (6-20) Glucose Level 128 mg/dL (70-99) Calcium Level 8.5 mg/dL (8.5-10.1) Magnesium Level 1.9 mg/dL (1.8-2.4) Total Bilirubin 0.4 mg/dL (0.2-1.0) Aspartate Amino Transf (AST/SGOT) 13 U/L (15-37) Alanine Aminotransferase (ALT/SGPT) 15 U/L (16-63) Alkaline Phosphatase 44 U/L (46-116) Total Protein 6.7 g/dL (6.4-8.2) Albumin 2.8 g/dL (3.4-5.0) Albumin/Globulin Ratio 0.7 (1.0-1.7) Medications Current Medications Potassium Chloride 50 ml @ 100 mls/hr Q1H IV Last administered on 01/19/17 21:45; Start 01/19/17 at 17:45; Stop 01/19/17 at 21:14; Status DC Aspirin (Children'S Aspirin) 81 mg DAILY PO Last administered on 01/21/17 08: 44; Start 01/20/17 at 09:00 Ferrous Sulfate (Feosol) 325 mg DAILYWBKFT PO Last administered on 01/21/17 08:44; Start 01/20/17 at 09:00 Linagliptin (Tradjenta) 5 mg DAILY PO Last administered on 01/21/17 08:44; Start 01/20/17 at 09:00 Pregabalin (Lyrica) 75 mg QHS PO Last administered on 01/20/17 20:47; Start 01/19/17 at 21:00 Tamsulosin HCl (Flomax) 0.4 mg DAILY PO Last administered on 01/21/17 08:45; Start 01/20/17 at 09:00 Atorvastatin Calcium (Lipitor) 40 mg QHS PO Last administered on 01/20/17 20: 46; Start 01/19/17 at 21:00 Fish Oil (Fish Oil) 1,000 mg DAILY PO Last administered on 01/21/17 08:44; Start 01/20/17 at 09:00 Multivitamins/ Calcium (Thera-M Plus) 1 tab DAILY PO Last administered on 01/21 08:44; Start 01/20/17 at 09:00 Pioglitazone HCl (Actos) 30 mg DAILY PO Last administered on 01/21/17 08:45; Start 01/20/17 at 09:00 Acetaminophen (Tylenol) 650 mg PRN Q6HRS PRN PO PAIN / TEMP Last administered on 01/21/17 10:50; Start 01/19/17 at 21:00 Albuterol/ Ipratropium (Duoneb) 3 ml RTBID NEB Last administered on 01/21/17 10:22; Start 01/19/17 at 21:15 Albuterol/ Ipratropium (Duoneb) 3 ml STK-MED ONCE .ROUTE ; Start 01/19/17 at 21 :00; Stop 01/19/17 at 21:01; Status DC Ceftriaxone Sodium 1 gm/ Sodium Chloride 50 ml @ 100 mls/hr Q24H IV ; Start at 21:30; Stop 01/19/17 at 21:43; Status DC Ceftriaxone Sodium 1 gm/ Dextrose 50 ml @ 100 mls/hr Q24H IV ; Start 01/19/17 at 21:43; Stop 01/19/17 at 21:44; Status DC Ceftriaxone Sodium 1 gm/ Dextrose 50 ml @ 100 mls/hr Q24H IV Last administered on 01/20/17 22:16; Start 01/19/17 at 22:00 Furosemide (Lasix) 20 mg 1X ONCE IVP Last administered on 01/19/17 23:19; Start 01/19/17 at 22:30; Stop 01/19/17 at 22:31; Status DC Furosemide (Lasix) 40 mg 1X ONCE IVP Last administered on 01/20/17 02:43; Start 01/20/17 at 03:00; Stop 01/20/17 at 03:01; Status DC Potassium Chloride (Klor-Con) 40 meq 1X ONCE PO Last administered on 07:28; Start 01/20/17 at 07:15; Stop 01/20/17 at 07:16; Status DC Potassium Chloride (Klor-Con) 40 meq TIDAC PO Last administered on 01/21/17 08:43; Start 01/20/17 at 08:00 Iron Sucrose 500 mg/Sodium Chloride 275 ml @ 78.571 mls/ hr 1X ONCE IV Last administered on 01/20/17 12:17; Start 01/20/17 at 12:00; Stop 01/20/17 at 15 :29; Status DC Amlodipine Besylate (Norvasc) 10 mg DAILY PO Last administered on 01/21/17 08 :44; Start 01/20/17 at 13:30 Active Scripts Active Reported Lyrica (Pregabalin) 75 Mg Capsule 75 Mg PO QHS Multivitamins (Multivitamin) 1 Each Tablet 1 Tab PO DAILY Metoprolol Tartrate 50 Mg Tablet 50 Mg PO BID Ferrous Sulfate 325 Mg Tablet 1 Tab PO DAILY Furosemide 80 Mg Tablet 80 Mg PO DAILY Flomax (Tamsulosin Hcl) 0.4 Mg Cap.er.24h 1 Cap PO DAILY Williams 3-6-9 1,200 mg Softgel (Fish Oil/Borage/Flax/Om3,6,9#1) 1,200 Mg Capsule 1 ,000 Mg PO DAILY Atorvastatin Calcium 40 Mg Tablet 40 Mg PO QHS Aspirin 81 Mg Tab.chew 81 Mg PO DAILY Amlodipine Besylate 10 Mg Tablet 10 Mg PO DAILY Actos (Pioglitazone Hcl) 30 Mg Tablet 30 Mg PO DAILY Tradjenta (Linagliptin) 5 Mg Tablet 1 Tab PO DAILY Vitals/I & O Vital Sign - Last 24 Hours 01/20/17 01/20/17 01/20/17 01/20/17 14:27 15:35 19:00 20:00 Temp 98.1 Pulse 87 75 85 Resp 20 22 B/P (MAP) 157/68 152/67 (95) 158/68 (98) Pulse Ox 97 92 O2 Delivery Nasal Cannula Nasal Cannula Nasal Cannula O2 Flow Rate 3.0 3.0 4.0 01/20/17 01/20/17 01/21/17 01/21/17 20:45 23:48 05:11 08:44 Pulse 96 91 91 B/P (MAP) 152/60 (90) 119/55 (76) 119/55 Pulse Ox 98 92 O2 Delivery Nasal Cannula Nasal Cannula O2 Flow Rate 3.0 4.0 01/21/17 01/21/17 10:24 10:59 Temp 99.8 Pulse 93 Resp 24 B/P (MAP) 117/59 (78) Pulse Ox 95 87 O2 Delivery Nasal Cannula Nasal Cannula O2 Flow Rate 3.0 3.0 Intake and Output 01/21/17 01/21/17 01/22/17 15:00 23:00 07:00 Intake Total 240 ml Output Total 250 ml Balance -10 ml NANCY SMALL MD 01/21/17 9733: PROGRESS NOTES Review of Relevant Patient seen and examined. Agree with above nurse practitioner note. Persistent edema and mild increase in creatinine from baseline. No significant changes to functional capacity. No significant ability to maintain adequate I's and O's. He will need a right heart catheterization for volume status given his body habitus and difficulty determining his volume status internally. Discussed with family. They will discussed among themselves and determine if they wish to go to work moved to [place] for consideration of a right heart catheter. Thank you for this consultation we will follow along closely. GALE MENDOZA APRN Jan 21, 2017 11:22 NANCY SMALL MD Jan 21, 2017 17:53
[2017-01-21] MEDS ORDERED: FUROSEMIDE 40 MG/4 ML VIAL IVP ONE (12:00)
[2017-01-21 14:50] VITALS: BP 121/55
[2017-01-21] MEDS ORDERED: VANCOMYCIN PER PHARMACY MC PRN (15:15)
[2017-01-21] MEDS ORDERED: VANCOMYCIN 2 GM in IV NORMAL SALINE 500ML 500 ML IV ONE ×2 (15:30→16:30)
[2017-01-21] MEDS ORDERED: FUROSEMIDE 20 MG/2 ML VIAL IVP ONE (15:30)
[2017-01-21] MEDS ORDERED: ALBUTEROL SULFATE 2.5 MG/3 ML NEBU. ONE (15:38)
[2017-01-21] MEDS ORDERED: CEFEPIME HCL 2 GM in IV NORMAL SALINE 100ML 100 ML IV SCH (16:00)
[2017-01-21 16:01] LABS: BGAS PH 7.37 (7.35-7.46)
--- NOTE | 2017-01-22 02:36 | PN ---
DATE: CURRENT PROBLEMS: 1. Acute on-chronic diastolic heart failure. 2. Acute on-chronic respiratory failure. 3. Pulmonary hypertension. 4. Coronary artery disease. 5. Bioprosthetic aortic valve. 6. Chronic kidney disease stage 3-4. 7. 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 8. Benign prostatic hyperplasia. 9. Severe hypokalemia. 10. Leukocytosis. SUBJECTIVE: The patient does not have accurate I's and O's, cannot determine how much weight he has lost. He is not looking as well today, more tachypneic. Seems more edematous. I discussed this case at length yesterday with Dr. Rush, his store leader. OBJECTIVE: VITAL SIGNS: Blood pressure 117/59, temperature 99.8, pulse 93, respirations 24, pulse ox 87% on 3 liters, but was also 95% on 3 liters. GENERAL: Color is a little bit improved , but he is still pale. HEENT: His tongue was moist. LUNGS: With coarse breath sounds. CARDIOVASCULAR: Irregular rhythm and rate. ABDOMEN: Mildly protuberant, nontender. EXTREMITIES: With 2+ edema. LABORATORY DATA: Potassium is 3.7 today, albumin is 2.8, BUN is 43, creatinine is 2.9. White count is up to 13.5. Chest x-ray shows [id number] pulmonary edema, mild cardiomegaly. PLAN: In discussion with Cardiology, it would be in his best interest to have a right heart catheterization. The family is considering it at this time. He also should be under the care of a curator of education at this point. The Velásquez catheter was put in for more accurate I's and O's and we are just waiting for the family to decide whether he can go to [place] or not. HARRISON HEBERT DO DR: HARSH/larry JOB#: [id number] / [id number]
== END 2017-01-21 17:50 | disposition short-term general hospital (02) | DRG 189 ==
LOC: 1 SOUTH 15:29
PROVIDERS: ADMIT Family Medicine; ATTEND Family Medicine
PROC: 30233N1 Transfusion of Nonautologous Red Blood Cells into Peripheral Vein, Percutaneous Approach (ICD-10-PCS; principal; 2017-01-19)
DX: J96.20 Acute and chronic respiratory failure, unspecified whether with hypoxia or hypercapnia (principal); I50.33 Acute on chronic diastolic (congestive) heart failure; N18.4 Chronic kidney disease, stage 4 (severe); E11.22 Type 2 diabetes mellitus with diabetic chronic kidney disease; I07.1 Rheumatic tricuspid insufficiency; I27.20 Pulmonary hypertension, unspecified; I13.0 Hypertensive heart and chronic kidney disease with heart failure and stage 1 through stage 4 chronic kidney disease, or unspecified chronic kidney disease; Z99.81 Dependence on supplemental oxygen; D50.9 Iron deficiency anemia, unspecified; S63.502A Unspecified sprain of left wrist, initial encounter; N39.498 Other specified urinary incontinence; W18.39XA Other fall on same level, initial encounter; D63.1 Anemia in chronic kidney disease; E87.6 Hypokalemia; I25.10 Atherosclerotic heart disease of native coronary artery without angina pectoris; I48.0 Paroxysmal atrial fibrillation; I48.2 Chronic atrial fibrillation; Z96.659 Presence of unspecified artificial knee joint; D72.829 Elevated white blood cell count, unspecified; N40.1 Benign prostatic hyperplasia with lower urinary tract symptoms; R62.7 Adult failure to thrive; Z79.01 Long term (current) use of anticoagulants; Z95.1 Presence of aortocoronary bypass graft; I25.2 Old myocardial infarction; Z95.3 Presence of xenogenic heart valve; Y93.89 Activity, other specified; Y92.89 Other specified places as the place of occurrence of the external cause; Y99.8 Other external cause status
CPT/HCPCS: 36415; 36600; 71010; 73090; 73110; 80053; 81001; 82607; 82803; 82947; 83735; 83880; 84132; 85025; 86850; 86900; 86901; 86920; 93005; 94640; J0692; J0696; J1756; J1940; J3480; J7050; J7613; J7620; P9016